=== PATIENT | female | born 1945 | race Two or more races ===

== ENCOUNTER → 2017-07-09 | Day surgery (SDC) | payer OTHER ==
[~2017-07-09] MED LIST: ALLEGRA ALLERG180 MG PO; AVAPRO75 MG PO; SINGULAIR10 MG PO; SYNTHROID50 MCG PO; [UNRECOGNIZED DRUG - OTHER] PO
== END | disposition home or self-care (01) ==
LOC: EDSTATUS 07-07 07:45 → ADM 07-07 07:45 → CIR.AMB 05:00 → EDSTATUS 07:45 → CIR.AMB 07:45 → SURH 07:45 → CIR.AMB 09:15
DX: C50.411 Malignant neoplasm of upper-outer quadrant of right female breast (principal)

== ENCOUNTER 2017-07-23 10:42 | Outpatient (CLI) | payer OTHER | END 2017-07-23 10:52 | disposition home or self-care (01) | LOC: SONOGRAMA 10:42 | DX: C50.411 Malignant neoplasm of upper-outer quadrant of right female breast (principal) ==

== ENCOUNTER 2017-08-05 07:17 | Outpatient (CLI) | payer OTHER | END 2017-08-05 07:23 | disposition home or self-care (01) | LOC: TOM 07:17 | DX: C18.7 Malignant neoplasm of sigmoid colon (principal); C50.411 Malignant neoplasm of upper-outer quadrant of right female breast | CPT/HCPCS: 71260; 74177; Q9965 ==

== ENCOUNTER → 2017-08-10 | Outpatient (CLI) | payer OTHER | END | disposition home or self-care (01) | LOC: NUCLEAR 07-09 07:00 | DX: C18.7 Malignant neoplasm of sigmoid colon (principal); C50.411 Malignant neoplasm of upper-outer quadrant of right female breast | CPT/HCPCS: 78306; A9503 ==

== ENCOUNTER 2017-08-13 11:01 | Outpatient (CLI) | payer OTHER | END 2017-08-13 11:07 | disposition home or self-care (01) | LOC: SONOGRAMA 11:01 | DX: C50.411 Malignant neoplasm of upper-outer quadrant of right female breast (principal) ==

== ENCOUNTER 2017-08-16 09:35 | Outpatient (CLI) | payer OTHER | END 2017-08-16 09:45 | disposition home or self-care (01) | LOC: NUCLEAR 09:35 | DX: C50.411 Malignant neoplasm of upper-outer quadrant of right female breast (principal); C18.7 Malignant neoplasm of sigmoid colon | CPT/HCPCS: 78472; 78496; A9560 ==

== ENCOUNTER 2018-01-14 09:50 | Outpatient (CLI) | payer OTHER | END 2018-01-14 09:54 | disposition home or self-care (01) | LOC: MAMO-SONO 09:50 → RAD 09:50 | DX: C50.411 Malignant neoplasm of upper-outer quadrant of right female breast (principal); M25.572 Pain in left ankle and joints of left foot; M25.571 Pain in right ankle and joints of right foot; M79.672 Pain in left foot; M25.562 Pain in left knee; M79.671 Pain in right foot; M25.561 Pain in right knee ==

== ENCOUNTER 2018-01-18 09:52 | Outpatient (CLI) | payer OTHER | END 2018-01-18 11:00 | disposition home or self-care (01) | LOC: NUCLEAR 09:52 | DX: R60.0 Localized edema (principal) ==

== ENCOUNTER 2018-06-09 13:58 | Outpatient (CLI) | payer OTHER | END 2018-06-09 14:32 | disposition home or self-care (01) | LOC: RAD 13:58 | DX: M15.0 Primary generalized (osteo)arthritis (principal); M05.79 Rheumatoid arthritis with rheumatoid factor of multiple sites without organ or systems involvement ==

== ENCOUNTER 2019-02-09 10:47 | Outpatient (CLI) | payer OTHER | END 2019-02-09 11:01 | disposition home or self-care (01) | LOC: MAMO-SONO 10:47 | DX: Z12.31 Encounter for screening mammogram for malignant neoplasm of breast (principal); Z87.898 Personal history of other specified conditions; C50.411 Malignant neoplasm of upper-outer quadrant of right female breast ==

== ENCOUNTER 2019-07-24 10:57 | Outpatient (CLI) | payer OTHER | END 2019-07-24 11:44 | disposition home or self-care (01) | LOC: RAD 10:57 → MAMO-SONO 11:15 → RAD 11:44 | DX: M25.511 Pain in right shoulder (principal) ==

== ENCOUNTER → 2020-05-02 | Outpatient (CLI) | payer OTHER | END | disposition home or self-care (01) | LOC: MAMO-SONO 11:33 | DX: Z12.31 Encounter for screening mammogram for malignant neoplasm of breast (principal); N64.4 Mastodynia; N60.11 Diffuse cystic mastopathy of right breast; N60.12 Diffuse cystic mastopathy of left breast ==

== ENCOUNTER 2020-05-27 07:12 | Outpatient (CLI) | payer OTHER | END 2020-05-27 07:33 | disposition home or self-care (01) | LOC: TOM 07:12 | PROVIDERS: ATTEND Ophthalmology | DX: J32.0 Chronic maxillary sinusitis (principal); H40.1234 Low-tension glaucoma, bilateral, indeterminate stage; H47.293 Other optic atrophy, bilateral; H40.89 Other specified glaucoma | CPT/HCPCS: 70488; Q9965 ==

== ENCOUNTER 2020-07-25 12:14 | Outpatient (CLI) | payer OTHER | END 2020-07-25 12:24 | disposition home or self-care (01) | LOC: RAD 12:14 | PROVIDERS: ATTEND Internal Medicine Rheumatology | DX: M62.830 Muscle spasm of back (principal); M15.0 Primary generalized (osteo)arthritis; M05.29 Rheumatoid vasculitis with rheumatoid arthritis of multiple sites ==

== ENCOUNTER 2020-09-05 09:17 | Outpatient (CLI) | payer OTHER | END 2020-09-05 09:29 | disposition home or self-care (01) | LOC: NUCLEAR 09:17 | PROVIDERS: ATTEND Internal Medicine | DX: I70.213 Atherosclerosis of native arteries of extremities with intermittent claudication, bilateral legs (principal) ==

== ENCOUNTER 2020-10-15 10:23 | Outpatient (CLI) | payer OTHER | END 2020-10-15 10:28 | disposition home or self-care (01) | LOC: NUCLEAR 10:23 | PROVIDERS: ATTEND Internal Medicine | DX: I87.2 Venous insufficiency (chronic) (peripheral) (principal); E03.8 Other specified hypothyroidism; M50.80 Other cervical disc disorders, unspecified cervical region; G62.9 Polyneuropathy, unspecified; M81.0 Age-related osteoporosis without current pathological fracture; I83.893 Varicose veins of bilateral lower extremities with other complications ==

== ENCOUNTER 2021-05-29 12:10 | Outpatient (CLI) | payer OTHER | END 2021-05-29 12:19 | disposition home or self-care (01) | LOC: MAMO-SONO 12:10 | PROVIDERS: ATTEND Surgery | DX: R92.0 Mammographic microcalcification found on diagnostic imaging of breast (principal); N60.11 Diffuse cystic mastopathy of right breast; N60.12 Diffuse cystic mastopathy of left breast; Z12.31 Encounter for screening mammogram for malignant neoplasm of breast ==

== ENCOUNTER 2022-08-27 10:43 | Outpatient (CLI) | payer OTHER | END 2022-08-27 10:48 | disposition home or self-care (01) | LOC: MAMO-SONO 10:43 | PROVIDERS: ATTEND Surgery | DX: C50.411 Malignant neoplasm of upper-outer quadrant of right female breast (principal); N60.11 Diffuse cystic mastopathy of right breast; N60.12 Diffuse cystic mastopathy of left breast ==

== ENCOUNTER 2023-05-13 12:17 | Outpatient (CLI) | payer OTHER | END 2023-05-13 12:29 | disposition home or self-care (01) | LOC: MAMO-SONO 12:17 | PROVIDERS: ATTEND Surgery | DX: C50.411 Malignant neoplasm of upper-outer quadrant of right female breast (principal); N60.11 Diffuse cystic mastopathy of right breast; N60.12 Diffuse cystic mastopathy of left breast; Z12.31 Encounter for screening mammogram for malignant neoplasm of breast ==

== ENCOUNTER 2024-06-06 10:55 | Outpatient (CLI) | payer OTHER | END 2024-06-06 11:07 | disposition home or self-care (01) | LOC: MAMO-SONO 10:55 | PROVIDERS: ATTEND Surgery | DX: N60.11 Diffuse cystic mastopathy of right breast (principal); N60.12 Diffuse cystic mastopathy of left breast; Z12.31 Encounter for screening mammogram for malignant neoplasm of breast ==

== ENCOUNTER 2025-04-05 10:25 | Outpatient (CLI) | payer OTHER | END 2025-04-05 10:26 | disposition home or self-care (01) | LOC: NUCLEAR 10:25 | DX: M81.0 Age-related osteoporosis without current pathological fracture (principal); M81.8 Other osteoporosis without current pathological fracture ==